=== PATIENT | female | born 1955 | race American Indian/Alaskan Native ===

== ENCOUNTER 2016-12-19 15:32 | Outpatient (CLI) | payer MEDICARE ==
--- NOTE | 2016-12-20 11:45 | Mammography Report ---
BILATERAL DIGITAL SCREENING MAMMOGRAM with CAD: 12/19/16 15:32:00 CLINICAL: Routine screening. COMPARISON:12/08/15 FINDINGS: There are scattered areas of fibroglandular density. No mass, architectural distortion or suspicious calcifications. IMPRESSION: No mammographic evidence of malignancy. BI-RADS CATEGORY: 1 - - Negative RECOMMENDATION: Routine mammographic screening in one year. COMMENT: Patient follow-up letters are generated by our [employer] application.
== END 2016-12-19 15:33 | disposition home or self-care (01) ==
LOC: SPVWC 15:32
PROVIDERS: ATTEND Obstetrics & Gynecology
DX: Z12.31 Encounter for screening mammogram for malignant neoplasm of breast (principal)
CPT/HCPCS: 77067; G0202

== ENCOUNTER 2018-01-09 13:02 | Outpatient (CLI) | payer MEDICARE ==
--- NOTE | 2018-01-09 14:58 | Mammography Report ---
BONE DEXA: CLINICAL: Postmenopausal. No comparison. TECHNIQUE: Two site bone DEXA performed on an Hologic scanner. FINDINGS: The average BMD of the lumbar spine L1-L4 is 1.386g/cm squared with a T-score of +2.1 and a Z-score of +4.0. The average BMD of the left hip is 1.258g/cm squared with a T-score of +1.5 and a Z-score of +2.4. IMPRESSION: WHO classification: Normal with average fracture risk based on both spine and left hip measurements. RECOMMENDATION: Clinical correlation and routine screening. DEFINITIONS: BMD = Bone Mineral Density T-score = BMD related to mean peak bone mass of young adult (mean expressed in Standard Deviation) Z-score = Age matched BMD expressed in SD World Health Organization (WHO) Diagnostic Criteria Normal T-score > -1 SD Osteopenia T-score between -1 and -2.4 SD Osteoporosis T-score -2.5 SD or below NOTE: BMD is not the only risk factor for fracture. One should also consider factors such as the patient's age, risk of falling, previous osteoporotic fracture, family history of osteoporotic fractures, current smoker, and low body weight. Z-scores are not calculated if >80 years of age.
--- NOTE | 2018-01-09 14:59 | Mammography Report ---
BILATERAL DIGITAL SCREENING MAMMOGRAM with CAD: 01/09/18 13:02:00 CLINICAL: Routine screening. COMPARISON:12/19/16 FINDINGS: The breasts are mostly fatty with a few bilateral upper outer scattered fibroglandular densities. No mass, architectural distortion or suspicious calcifications. IMPRESSION: No mammographic evidence of malignancy. BI-RADS CATEGORY: 1 - - Negative RECOMMENDATION: Routine mammographic screening in one year. COMMENT: Patient follow-up letters are generated by our [employer] application.
== END 2018-01-09 13:03 | disposition home or self-care (01) ==
LOC: SPVWC 13:02
PROVIDERS: ATTEND Obstetrics & Gynecology
DX: Z12.31 Encounter for screening mammogram for malignant neoplasm of breast (principal); Z78.0 Asymptomatic menopausal state
CPT/HCPCS: 77067; 77080

== ENCOUNTER 2019-02-04 12:43 | Outpatient (CLI) | payer MEDICARE ==
--- NOTE | 2019-02-04 13:53 | Mammography Report ---
Bilateral mammogram and bilateral breast ultrasound: Patient with bilateral periareolar pain during self examinations. No discharge and no mass. Routine imaging is compared to prior exams dating back to November 2016. There is a mostly fatty replaced breast pattern with asymmetric distribution of fibroglandular tissue. There are no suspicious findings and no interval changes. Bilateral retroareolar ultrasound fails to identify any sonographic abnormality. CAD used. Impression: No pathology identified. Stable mammogram. Recommendation: Clinical followup with annual mammogram followup. Any further evaluation at this time should be based on your concern. BI-RADS CATEGORY: 1 = Negative ACR BI-RADS MAMMOGRAPHIC CODES: 0 = Needs additional imaging evaluation; 1 = Negative; 2 = Benign; 3 = Probably benign; 4 = Suspicious; 5 = Malignant; 6 = Known biopsy-proven malignancy COMMENT: 1. Dense breast tissue, i.e., adenosis, fibrocystic changes, etc., may obscure an underlying neoplasm. 2. Approximately 10% of cancers are not detected with mammography. 3. A negative mammography report should not delay biopsy if a clinically suspicious mass is present.
== END 2019-02-04 12:44 | disposition home or self-care (01) ==
LOC: SPVWC 12:43
PROVIDERS: ATTEND Obstetrics & Gynecology
DX: N64.4 Mastodynia (principal); I10 Essential (primary) hypertension; Z90.49 Acquired absence of other specified parts of digestive tract; M19.90 Unspecified osteoarthritis, unspecified site
CPT/HCPCS: 77066

== ENCOUNTER 2020-08-29 10:04 | Outpatient (CLI) | payer MEDICARE ==
--- NOTE | 2020-08-30 11:01 | Ultrasound Report ---
LEFT DIGITAL DIAGNOSTIC MAMMOGRAM WITH CAD WITHOUT TOMOSYNTHESIS 08/29/2020 LEFT LIMITED BREAST ULTRASOUND INDICATION: Abnormal screening mammogram TECHNIQUE: Digital left mammographic imaging was performed. Spot compression and magnification views were obtained. Limited ultrasound was performed. This examination was interpreted with the benefit o f Computer-Aided Detection (CAD) analysis. COMPARISON: Mammograms 08/10/2020 and multiple priors through 2010 Breast Density: There are scattered areas of fibroglandular density. FINDINGS: MAMMOGRAPHIC FINDINGS: On additional views of the area of density and distortion in the region of a r emote excisional biopsy does not appear to be significantly changed from multiple prior studies. A sm all nodule in this area also appears stable and ULTRASOUND FINDINGS: Targeted ultrasound evaluation was performed of the area of interest. In the 3:0 0 position, 4 cm from the nipple, in the general area of the stable radiographic nodule, a benign-diann earing 6 mm ovoid solid nodule is seen which is wider than tall, shows smoothly marginated borders, a nd lack shadowing or vascularity. This is thought to be benign based on morphology and the stability on mammogram. No other definite lesion is seen. Slight shadowing is noted in the general area of the remote scar at 1:00. IMPRESSION: No significant lesions are seen Follow up recommendation: Routine BI-RADS Category 2: Benign. A "normal" or negative report should not discourage follow up or biopsy of a clinically significant f inding. A written summary of these findings will be mailed to the patient. The patient will be entered into a mammography reporting system which will generate a reminder letter for the patient's next appointmen t at the appropriate interval. According to the [employer], yearly mammograms are recommended starting at age 40 and continuing as long as a woman is in good health. Breast MRI is recommended for women with an diann roximately 20-25% or greater lifetime risk of breast cancer, including women with a strong family his tory of breast or ovarian cancer and women who have been treated for Hodgkin's disease. Signer Name: Ajit Diaz MD Signed: 08/30/2020 10:57 AM Workstation Name: [id number]
== END 2020-08-29 10:05 | disposition home or self-care (01) ==
LOC: SPVWC 10:04
PROVIDERS: ATTEND Obstetrics & Gynecology
DX: N63.42 Unspecified lump in left breast, subareolar (principal)

== ENCOUNTER 2021-09-04 13:40 | Outpatient (CLI) | payer MEDICARE ==
--- NOTE | 2021-09-04 18:13 | Mammography Report ---
DIGITAL SCREENING MAMMOGRAM WITH CAD, 09/04/2021 CLINICAL INFORMATION / INDICATION: Routine screening mammography. SCREENING MAMMO TECHNIQUE: Digital bilateral 2D mammography was obtained in the craniocaudal and mediolateral obliqu e projections. This examination was interpreted with the benefit of Computer-Aided Detection analysis . COMPARISON: 08/10/2020, 02/04/2019 FINDINGS: Breast Density: There are scattered areas of fibroglandular density. No dominant mass, suspicious calcifications, or architectural distortion in either breast. Postbiopsy scar is noted on the left. IMPRESSION: No mammographic evidence of malignancy. Follow up recommendation: Routine yearly BI-RADS Category 2: Benign. A "normal" or negative report should not discourage follow up or biopsy of a clinically significant f inding. A written summary of these findings will be mailed to the patient. The patient will be entered into a mammography reporting system which will generate a reminder letter for the patient's next appointmen t at the appropriate interval. The [employer] recommends yearly mammograms starting at age 40 and continuing as l puja as a woman is in good health. Breast MRI is recommended for women with an approximate 20-25% or greater lifetime risk of breast cancer, including women with a strong family history of breast or ova katy cancer or who have been treated for Hodgkin's disease. Signer Name: Raheel De MD Signed: 09/04/2021 6:09 PM Workstation Name: [id number]
== END 2021-09-04 13:41 | disposition home or self-care (01) ==
LOC: SPVWC 13:40
PROVIDERS: ATTEND Obstetrics & Gynecology
DX: Z12.31 Encounter for screening mammogram for malignant neoplasm of breast (principal)
CPT/HCPCS: 77067

== ENCOUNTER 2022-02-08 13:15 | Outpatient (CLI) | payer MEDICARE ==
--- NOTE | 2022-02-08 16:07 | Cat Scan Report ---
CT cervical spine wo con INDICATION / CLINICAL INFORMATION: 66 years Female; NECK PAIN PREVIOUS NECK SURGERY . TECHNIQUE: Axial CT images of the cervical spine were obtained. Sagittal and coronal reformatted images were pr oduced. All CT scans at this location are performed using CT dose reduction for ALARA by means of aut omated exposure control. COMPARISON: None available. FINDINGS: POST-SURGICAL CHANGES: Interbody fusion seen at C5-6. ALIGNMENT: Straightening of the cervical spine noted, which may be related to patient positioning. VERTEBRAE: No signs of fracture. Vertebral bodies are grossly normal in height throughout. No signif icant facet joint disease or osseous foraminal narrowing appreciated. There is moderate costotransverse joint hypertrophy on the left at T1. INTRAVERTEBRAL DISCS: There is significant opacification of the posterior longitudinal ligament exten ding from C2 inferiorly to the T2 level. Significant canal narrowing is seen from the C2-3 level to t he C4-5 level, where the AP diameter of the canal narrows to approximately 5 mm and perhaps even less at the pedicular level of C5. PARASPINAL SOFT TISSUES: No significant abnormality. ADDITIONAL FINDINGS: None. IMPRESSION: 1. Significant opacification of the posterior longitudinal ligament as described above. Fairly signif icant canal narrowing is seen at C2-3, C3-4, and C4-5. Signer Name: Yoandy Dobbs MD, III Signed: 02/08/2022 4:03 PM Workstation Name: [id number]
== END 2022-02-08 13:16 | disposition home or self-care (01) ==
LOC: CT 13:15
PROVIDERS: ATTEND Psychiatry & Neurology Neurology
DX: M54.2 Cervicalgia (principal)
CPT/HCPCS: 72125

== ENCOUNTER 2022-03-19 15:17 | Outpatient (CLI) | payer MEDICARE ==
--- NOTE | 2022-03-19 17:34 | Mammography Report ---
DEXA BONE DENSITY SCAN INDICATION / CLINICAL INFORMATION: ASYMPTOMATIC MENOPAUSE Z78.0. 66 years Female COMPARISON: None available. LUMBAR SPINE, L1-L4: - Bone mineral density (BMD) = 1.460 g/cm2. - T-score = 2.8 Change (%) since most recent prior (if available): None available. LEFT HIP, NECK : - Bone mineral density (BMD) = 1.028 g/cm2. - T-score = 0.5 Change (%) since most recent prior (if available): None available. IMPRESSION: 1. WHO Classification: Normal bone density. Fracture Risk: Not Increased. 2. 10-Year Fracture Risk (FRAX) = Major Osteoporotic Not reported.% / Hip: Not reported.% FRAX generally not reported for patients with normal or osteoporotic BMD, in [id number] lc ents younger than age 50, or in patients undergoing pharmacotherapy BMD Reporting Guidelines (ISCD, 2015) BMD Reporting in Postmenopausal Women and in Men Age 50 and Older - T-scores are preferred. - The WHO densitometric classification is applicable. BMD Reporting in Females Prior to Menopause and in Males Younger Than Age 50 - Z-scores, not T-scores, are preferred. This is particularly important in children. - A Z-score of -2.0 or lower is defined as below the expected range for age, and a Z-score above -2.0 is within the expected range for age. - Osteoporosis cannot be diagnosed in men under age 50 on the basis of BMD alone. - The WHO diagnostic criteria may be applied to women in the menopausal transition. http://www.iscd.org/official-positions/1361-yaqd-krkybnha-positions-adult/ Signer Name: Pete Marcial MD Signed: 03/19/2022 5:30 PM Workstation Name: [id number]
== END 2022-03-19 15:18 | disposition home or self-care (01) ==
LOC: SPVWC 15:17
PROVIDERS: ATTEND Obstetrics & Gynecology
DX: Z13.820 Encounter for screening for osteoporosis (principal); Z78.0 Asymptomatic menopausal state
CPT/HCPCS: 77080